=== PATIENT | female | born 1955 | race Caucasian/White ===

== ENCOUNTER 2016-08-22 23:33 | Inpatient (IN) ==
[2016-08-22] MEDS ORDERED: XYLOCAINE-MPF 1% 5 ML ONE (23:45)
[2016-08-23 03:54] LABS: MANUAL DIFF NEEDED? NO
[2016-08-23 04:01] LABS: BASO% 0.3 % (0.0-0.8); EOS# 0.21 X1000 (0.0-0.7); EOS% 3.3 % (0.0-10.0); HEMATOCRIT 34.7 % (37.0-47.0); HEMOGLOBIN 10.8 g/dL (12.0-16.0); IMM GRAN# 0.02 X1000 (0.0-0.04); IMM GRAN% 0.3 % (0.0-0.5); LYMPH# 1.55 X1000 (1.2-3.4); LYMPH% 24.4 % (20.5-51.1); MCH 29.5 PG (27-31); MCHC 31.1 g/dL (33-37); MCV 94.8 FL (81-99); MONO# 0.33 X1000 (0.11-0.59); MONO% 5.2 % (1.7-9.3); MPV 10.2 FL (7.4-10.4); NEUT% 66.5 % (42.2-75.2); PLT 234 X1000 (130-400); RBC 3.66 XMIL (4.2-5.4)
[2016-08-23 04:23] LABS: AGAP 12; ALBUMIN 3.9 g/dL (3.5-5.0); ALKALINE PHOSPHATASE 56 U/L (32-104); BUN 27 mg/dL (8-22); CALCIUM 9.1 mg/dL (8.8-10.2); CHLORIDE 107 mmol/L (98-107); COSMO 289; GOT 42 U/L (10-30); GPT 33 U/L (10-36); POTASSIUM 3.9 mmol/L (3.5-5.1); SODIUM 142 mmol/L (136-145); TCO2 23 mmol/L (25-35); TOTAL BILIRUBIN < 0.15 mg/dL (0.20-1.00); TOTAL PROTEIN 6.1 g/dL (6.3-8.3)
[2016-08-23 04:39] LABS: CK INDEX 0.9 (0.0-2.5); CK-MB 11.46 ng/mL (0.0-5.0)
[2016-08-23] MEDS ORDERED: ULTRACET 37.5MG/325MG PO PRN (05:26)
--- NOTE | 2016-08-23 08:08 | Diag Imaging Result Document ---
PROCEDURE NAME: LUMBAR SPINE W/O CONTRAST - 08/23/2016 CT LUMBAR SPINE WITHOUT CONTRAST: FINDINGS: There are 6 lumbar type vertebra. The uppermost vertebra will be referred to as L1 vertebra. There is a mild compression fracture inferiorly involving the L1 vertebra. This appears to be acute. Minimal anterior wedging of the L2 vertebra which does not appear to be acute. No other compressed vertebra. No subluxation. Prominent bone spurring in the lower lumbar spine. There is a vacuum disk at L4-5. No disk herniation. IMPRESSION: Acute mild compression fracture inferiorly to the L1 vertebra.
[2016-08-23] MEDS ORDERED: NORCO-7.5 PO PRN (10:21)
[2016-08-23] MEDS: LASIX PO SCH (12:05)
[2016-08-23] MEDS: WELLBUTRIN XL PO SCH (12:05)
[2016-08-23] MEDS: PRINIVIL PO SCH (12:05)
[2016-08-23] MEDS: PRILOSEC PO SCH (12:06)
[2016-08-23] MEDS: KLOR-CON PO SCH (12:06)
--- NOTE | 2016-08-23 13:12 | Diag Imaging Result Document ---
PROCEDURE NAME: HEAD W/O CONTRAST - 08/23/2016 CT BRAIN WITHOUT. FINDINGS: No parenchymal hemorrhage. No epidural or subdural hematoma. No subarachnoid hemorrhage. No mass identified on this noncontrasted exam. No hydrocephalus. No skull fracture. No sinus opacification. There are posterior scalp skin myranda. IMPRESSION: Posterior scalp skin myranda, but no intracranial injury. A preliminary report was given at 12:57 p.m.
--- NOTE | 2016-08-23 17:04 | HISTORY AND PHYSICAL ---
PRIMARY CARE PHYSICIAN: JOSH Houston at [facility]. CHIEF COMPLAINT: Passing out and hitting her head on her bedside table. HISTORY OF PRESENTING ILLNESS: This is a 61-year-old female who presents to [facility] ER after she states that she had gotten up to walk to her kitchen, remembers she had been sitting on the side of the bed. When she stood up she states that she passed out and lost consciousness briefly, hitting the back of her head on her night stand. When she came to, she states that she saw blood, put her hand on the back of her head and she did have about a 1 inch laceration to her posterior occiput. She came to the emergency room. She had 5 myranda placed to the laceration to her posterior occiput. Laboratory data showed a creatine kinase of 1236 with a CK-MB of 11.46 with a negative troponin 0.010. Lumbar spine CT was obtained that showed an acute mild compression fracture inferiorly to the L1 vertebrae. CT of the head showed no hemorrhage. She was admitted for further evaluation and treatment. PAST MEDICAL HISTORY: Of hypertension, osteoporosis, GERD, degenerative joint disease, scoliosis, Any's disease. PAST SURGICAL HISTORY: Cholecystectomy, hysterectomy, tonsillectomy and a gastric bypass. FAMILY HISTORY: Noncontributory. SOCIAL HISTORY: She currently lives alone. Denies any tobacco, alcohol, or illicit drug use. LABORATORY DATA: Showed a white blood cell count of 6.36, a hemoglobin of 10.8, hematocrit 34.7, platelets 234,000. Sodium of 142, potassium 3.9, chloride 107, CO2 23, BUN of 27, creatinine 0.5. Glucose 119. Creatine kinase of 1236 with a CK-MB of 11.46. Troponin less than 0.010. Lumbar spine CT showed an acute mild compression fracture inferiorly of the L1 vertebrae. CT of the head showed posterior scalp skin myranda but no intracranial injury. REVIEW OF SYSTEMS: She denied any fever, chills, blurred vision, dizziness, chest pain, coughing, shortness of breath. Denies any constipation, diarrhea, abdominal pain. It is positive for low back pain and a mild headache status post her fall. PHYSICAL EXAMINATION: On arrival showed a temperature of 97.8 degrees, a pulse of 77, respirations 17, blood pressure 150/76, saturating 100% on room air. GENERAL: This is a 61-year-old female who is lying in the bed, answers questions appropriately. HEENT: Normocephalic and atraumatic. Pupils are equal, round, reactive to light. Extraocular movements are intact. Oropharynx and nares are clear. Patient is noted to her posterior occiput to have 5 myranda to a 1 inch laceration that are dry and intact. NECK: Supple. LUNGS: Clear to auscultation bilaterally with equal lung expansion and chest wall movement. HEART: With regular rate and rhythm. No murmurs, rubs, or gallops. ABDOMEN: Soft, nontender, nondistended. Bowel sounds are present x4 quadrants. EXTREMITIES: No clubbing, cyanosis, or edema. NEUROLOGICAL: The cranial nerves 2-12 are grossly intact. ASSESSMENT: 1. Syncope. 2. Rhabdomyolysis. 3. An acute L1 compression fracture. 4. Hypertension. 5. Gastroesophageal reflux disease. PLAN: She was admitted to the medical unit. Placed on telemetry. Healthy heart diet. Will obtain an echocardiogram and a carotid ultrasound. Continue her home medications. Place on normal saline at 150 mL an hour, Demerol 25 mg IV q.4 hours p.r.n. pain. Recheck a CBC, BMP, and cardiac profile in the a.m. ALLERGIES: Hydrocodone, povidone iodine soap and sulfa. HOME MEDICATIONS: We will hold the following: Antivert 25 mg p.o. q.8 hours p.r.n., Naprosyn 500 mg p.o. p.r.n., Imitrex 50 mg p.o. p.r.n., temazepam 30 mg p.o. daily. We will continue her bupropion XL 300 mg p.o. daily. Lasix 40 mg p.o. daily, lisinopril 10 mg p.o. daily. Potassium 10 mEq p.o. daily. AcipHex 20 mg p.o. daily. Dictated by NINOSKA Sotelo for Omar Mulligan MD cc: NINOSKA Sotelo MD Ellie Adams
[2016-08-23] MEDS: DEMEROL IV PRN ×2 (17:32→23:57)
[2016-08-24] MEDS: NS 1,000 ML IV SCH ×5 (00:02→21:25)
[2016-08-24] MEDS: DEMEROL IV PRN ×2 (04:58→09:15)
[2016-08-24 05:56] LABS: MANUAL DIFF NEEDED? NO
[2016-08-24] MEDS: PRILOSEC PO SCH (06:06)
[2016-08-24 06:43] LABS: AGAP 11; BUN 20 mg/dL (8-22); CALCIUM 8.6 mg/dL (8.8-10.2); CHLORIDE 107 mmol/L (98-107); COSMO 283; POTASSIUM 3.5 mmol/L (3.5-5.1); SODIUM 141 mmol/L (136-145); TCO2 24 mmol/L (25-35)
[2016-08-24 06:45] LABS: CK PROFILE 1120 U/L (24-173)
[2016-08-24 06:57] LABS: BASO% 0.5 % (0.0-0.8); EOS# 0.21 X1000 (0.0-0.7); EOS% 4.8 % (0.0-10.0); HEMATOCRIT 31.9 % (37.0-47.0); HEMOGLOBIN 9.8 g/dL (12.0-16.0); IMM GRAN# 0.01 X1000 (0.0-0.04); IMM GRAN% 0.2 % (0.0-0.5); LYMPH# 1.11 X1000 (1.2-3.4); LYMPH% 25.4 % (20.5-51.1); MCH 29.4 PG (27-31); MCHC 30.7 g/dL (33-37); MCV 95.8 FL (81-99); MONO# 0.28 X1000 (0.11-0.59); MONO% 6.4 % (1.7-9.3); MPV 10.3 FL (7.4-10.4); NEUT% 62.7 % (42.2-75.2); PLT 215 X1000 (130-400); RBC 3.33 XMIL (4.2-5.4)
[2016-08-24 07:05] LABS: CK INDEX 0.6 (0.0-2.5); CK-MB 6.98 ng/mL (0.0-5.0)
[2016-08-24] MEDS: LASIX PO SCH (09:14)
[2016-08-24] MEDS: KLOR-CON PO SCH (09:14)
[2016-08-24] MEDS: FLEXERIL PO PRN ×2 (09:14→22:40)
[2016-08-24] MEDS: PRINIVIL PO SCH (09:14)
[2016-08-24] MEDS: WELLBUTRIN XL PO SCH (09:14)
[2016-08-24] MEDS ORDERED: IMITREX SUBQ ONE (13:49)
[2016-08-24] MEDS ORDERED: TORADOL IV ONE (13:49)
[2016-08-24] MEDS ORDERED: TORADOL IV PRN (13:50)
[2016-08-24] MEDS ORDERED: FIORICET PO PRN (14:03)
--- NOTE | 2016-08-24 14:32 | PROGRESS NOTE ---
DATE: 08/24/2016 SUBJECTIVE: The patient has no focal complaints. OBJECTIVE: Vital Signs: Blood pressure 119/53, heart rate 73, respiratory rate 18, temperature 97.8 degrees. Cardiovascular: Regular rate and rhythm. Pulmonary: Bilateral breath sounds. Clear to auscultation. Gastrointestinal: Soft, nontender, nondistended. Bowel sounds are positive. LABORATORY DATA: White count of 4. Hemoglobin and hematocrit 9 and 32. Platelets 215,000. CMP normal, except creatine kinase up a little bit at 1120. PROBLEM LIST: 1. Fall/syncope. Echo and carotid are pending. Telemetry, I believe, has been unremarkable and all her tests are still just waiting. 2. L1 compression fracture. Apparently she has been up and about. I am still waiting on PT's assessment. I do not think they have seen her yet. Just to get a better sense if she stays, to go home, because she is alone at home and has no support. Apparently she has had a compression fracture in the past. 3. Migraine. She is complaining of migraines currently. We will treat that. She usually responds to Imitrex. We will try Toradol, Fioricet. Increase her pain medication, morphine. 4. She also has some early mild rhabdomyolysis without renal failure. We will continue IV fluids and follow clinically. DISPOSITION: Pending her workup. cc: Robert Montejo MD
--- NOTE | 2016-08-24 19:13 | ECHO REPORT ---
ORDER DATE: 08/23/2016 INTERPRETING PHYSICIAN: Dr. Grajeda CLINICAL INDICATIONS: Wivsb-gmu-simv-old female, syncope. M-MODE MEASUREMENTS: Right ventricle: 2.3 cm. Left ventricle end diastole: 4.6 cm. Left ventricle end systole: 2.9 cm. Posterior wall: 1.0 cm. Interventricular septum: 1.0 cm. Left atrium: 3.9 cm. Aortic root: 3.5 cm. SUMMARY OF 2-DIMENSIONAL IMAGING: The left ventricular function is normal. Ejection fraction estimated at 60% to 65%. No wall motion abnormality is noted. The left ventricular chamber is not dilated. Right ventricle appears to be normal. The atria appear to be normal. Aortic valve has three cusps. There is no stenosis. Color flow mapping indicates very mild degree of regurgitation. Mitral valve looks normal. Color flow mapping indicates mild degree of regurgitation. Pulse wave Doppler of mitral inflow is normal. Pulse wave Doppler of pulmonary venous flow is normal. Tissue Doppler of septal and lateral mitral anulus averages 12 cm. There is no diastolic dysfunction. Tricuspid valve looks normal with mild degree of regurgitation. Pulmonic valve looks normal. Color flow mapping unremarkable. Inferior vena cava is not dilated. Pulmonary pressure estimated at 35 mmHg. There is no pericardial effusion, masses, nor thrombus. SUMMARY: This study shows: 1. Normal left ventricular systolic function. 2. Mild degree of mitral and tricuspid regurgitation. 3. Very minimal degree of aortic regurgitation. 4. No diastolic dysfunction. 5. Pulmonary systolic pressure estimated at 35 mmHg. Clinical correlation recommended. cc: MD Shalonda Naylor CRNP
[2016-08-25 05:58] LABS: HEMATOCRIT 30.9 % (37.0-47.0); HEMOGLOBIN 9.6 g/dL (12.0-16.0); MCH 29.6 PG (27-31); MCHC 31.1 g/dL (33-37); MCV 95.4 FL (81-99); MPV 10.1 FL (7.4-10.4); RBC 3.24 XMIL (4.2-5.4)
[2016-08-25 06:18] LABS: AGAP 11; BUN 18 mg/dL (8-22); CALCIUM 8.7 mg/dL (8.8-10.2); CHLORIDE 108 mmol/L (98-107); COSMO 287; POTASSIUM 3.7 mmol/L (3.5-5.1); SODIUM 143 mmol/L (136-145); TCO2 23 mmol/L (25-35)
[2016-08-25] MEDS: PRILOSEC PO SCH (06:23)
--- NOTE | 2016-08-25 07:04 | Extremity Venous Study ---
PROCEDURE NAME: Carotid Ultrasound - 08/23/2016 BILATERAL CAROTID ARTERY DOPPLER ULTRASOUND: COMPARISON: None. FINDINGS: On the right side, there is some mild plaque buildup throughout the carotid bulb and proximal internal carotid artery. No elevated velocity to suggest hemodynamically significant stenosis. Maximum velocity is 103 cm/sec in the distal internal carotid artery. This is consistent with mild stenosis of 0%-39%. On the left side, there is plaque buildup throughout the carotid bulb and internal carotid artery. There is mildly elevated velocity in the carotid bulb at 116 cm/sec. This corresponds with moderate, 40%-59% stenosis. The vertebral arteries are patent. IMPRESSION: Atherosclerotic changes of the carotid arteries bilaterally. Moderate stenosis at the left carotid bulb.
[2016-08-25] MEDS: PRINIVIL PO SCH (09:48)
[2016-08-25] MEDS: KLOR-CON PO SCH (09:48)
[2016-08-25] MEDS: MORPHINE IV PRN ×3 (09:48→22:28)
[2016-08-25] MEDS: WELLBUTRIN XL PO SCH (09:48)
[2016-08-25] MEDS: LASIX PO SCH (09:48)
[2016-08-25] MEDS: NS 1,000 ML IV SCH ×2 (09:56→13:12)
[2016-08-25] MEDS ORDERED: MAALOX PLUS LIQUID PO PRN (11:26)
[2016-08-25] MEDS: FLEXERIL PO PRN (16:20)
--- NOTE | 2016-08-25 16:44 | PROGRESS NOTE ---
DATE: 08/25/2016 SUBJECTIVE: The patient feels better. She looks a lot better. She is much more attentive, alert. Her pain seems to be fairly well-controlled. OBJECTIVE: Vital Signs: Blood pressure 126/64, heart rate 79, respiratory rate 18, temperature 98.9 degrees, 99% on room air. Cardiovascular: Regular rate and rhythm. Pulmonary: Bilateral breath sounds. Clear to auscultation. Gastrointestinal: Abdomen soft, nontender, nondistended. Bowel sounds are positive. LABORATORY DATA: White count 3.5, hemoglobin and hematocrit 9.6 and 30, platelets 210,000. Basic was normal. CPK 1288. PROBLEM LIST: 1. Acute rhabdomyolysis: We will continue fluids and follow clinically. Total CPK we will monitor tomorrow. I suspect with her Any syndrome she probably has some degree of chronic CK leak but we will continue to follow. 2. Migraines: Appear to be controlled. 3. Compression fracture: Pain appears to be somewhat controlled. 4. Disposition: It looks like she will be able tolerate going home. I anticipate possible discharge tomorrow if stable. cc: Robert Montejo MD
[2016-08-26] MEDS: NS 1,000 ML IV SCH ×2 (01:17→13:22)
[2016-08-26 06:18] LABS: HEMATOCRIT 31.6 % (37.0-47.0); HEMOGLOBIN 9.6 g/dL (12.0-16.0); MCHC 30.4 g/dL (33-37); MCV 95.5 FL (81-99); MPV 10.2 FL (7.4-10.4); RBC 3.31 XMIL (4.2-5.4)
[2016-08-26] MEDS: PRILOSEC PO SCH (06:32)
[2016-08-26] MEDS: MORPHINE IV PRN (06:34)
[2016-08-26 06:55] LABS: AGAP 12; ALBUMIN 3.3 g/dL (3.5-5.0); ALKALINE PHOSPHATASE 100 U/L (32-104); BUN 14 mg/dL (8-22); CALCIUM 8.8 mg/dL (8.8-10.2); CHLORIDE 107 mmol/L (98-107); COSMO 285; GOT 68 U/L (10-30); GPT 52 U/L (10-36); HDL 60 mg/dL (45-65); LDL 91 mg/dL; POTASSIUM 3.6 mmol/L (3.5-5.1); SODIUM 143 mmol/L (136-145); TCO2 24 mmol/L (25-35); TOTAL PROTEIN 5.1 g/dL (6.3-8.3); TRIGLYCERIDES 72 mg/dL (35-135); VLDL 14 mg/dL
[2016-08-26 07:52] VITALS: BP 127/67
[2016-08-26] MEDS: WELLBUTRIN XL PO SCH (08:54)
[2016-08-26] MEDS: KLOR-CON PO SCH (08:55)
[2016-08-26] MEDS: PRINIVIL PO SCH (08:55)
[2016-08-26] MEDS: LASIX PO SCH (08:55)
[2016-08-26] MEDS ORDERED: PERCOCET-5 PO PRN (10:24)
--- NOTE | 2016-08-26 12:56 | Diag Imaging Result Document ---
PROCEDURE NAME: RIBS UNILAT W/PA CHEST LEFT - 08/26/2016 RIBS, UNILATERAL PA CHEST LEFT: INDICATION: Fall with left rib pain. FINDINGS: There are fractures involving the anterolateral 9th and 10th ribs. There is a left pleural effusion. No pneumothorax is identified. There are surgical myranda at the gastric region. The heart size appears normal. Right lung is clear. IMPRESSION: New left effusion associated with fractures of the left 9th and 10th ribs.
--- NOTE | 2016-08-26 18:20 | DISCHARGE SUMMARY ---
ADMISSION DATE: 08/23/2016 DISCHARGE DATE: 08/26/2016 PRIMARY CARE PHYSICIAN: JOSH Houston at [facility]. ADMISSION DIAGNOSES: 1. Syncope. 2. Rhabdomyolysis. 3. Acute L1 compression fracture. 4. Hypertension. 5. Gastroesophageal reflux disease. DISCHARGE DIAGNOSES: 1. Syncope resolved. 2. Rhabdomyolysis improved, but this is in the setting of Any muscle syndrome. 3. Acute L1 compression fracture. 4. Left 9th and 10th rib fractures. 5. Hypertension. 6. Gastroesophageal reflux disease. SUMMARY OF FINDINGS: This is a 61-year-old female who presented to the emergency room after she had gotten up from her bed to walk into her kitchen and remembers she had been sitting on the side of the bed. When she stood up, she passed out and lost consciousness briefly hitting the back of her head on her night stand. When she came to she saw blood, put her hand on the back of her head and noticed that she had about an inch laceration to her posterior fossa and she came to the emergency room and required 5 myranda placed to that laceration to her posterior occiput. Laboratory data showed a creatine kinase of 1236 with a CK-MB of 11.46, negative troponin. Lumbar spine CT showed an acute mild compression fracture inferiorly to the L1 vertebra. CT of her head showed no hemorrhage. She was given IV hydration. We continued her home medications. We gave her Demerol 25 IV q.4 hours p.r.n. initially. Then, she was changed over to morphine 2 mg IV q.4 hours p.r.n. Her laboratory data shows improvement in her creatine kinase. She is down today to the 963. She continued even with physical therapy to have some pain in her left rib area on the side. We did a rib with chest x-ray that showed fractures of the left 9th and 10th ribs. But it is felt that she can safely be discharged home today with home health with a physical therapy component. DISCHARGE MEDICATIONS: Bupropion 300 mg p.o. daily. Calcium D chewable daily, Antivert 25 mg p.o. q.8 hours p.r.n., naproxen 500 mg p.o. p.r.n., oxycodone 5 one p.o. q.4 hours p.r.n., #25 with no refills. Imitrex 50 mg p.o. p.r.n., temazepam 30 mg p.o. daily. Zanaflex 4 mg p.o. t.i.d. p.r.n. #90 with no refills. We will also start her on some Lovaza 1 g p.o. b.i.d. #60 with 2 refills. FOLLOWUP: She will follow up with her primary care physician in 1-2 weeks. She will also need to follow up with her surgeon Dr. Boo in [place] as her carotid Dopplers showed moderate stenosis at the left carotid bulb that corresponded with 40-59% stenosis. Patient instructed on this and verbalized understanding. DISCHARGE TIME: Thirty-five minute discharge. Dictated by NINOSKA Sotelo for Robert Montejo MD cc: NINOSKA Sotelo MD Ellie Adams pt examined, agree with above, pt will be set up with home heatlt, and [facility]
--- NOTE | 2016-08-30 02:23 | PROVIDER DOCUMENTATION ---
This chart was entered by Jessica Gore, acting as scribe for Cricket Carrion MD. HPI-Head Injury - General Chief Complaint: Head Injury Stated Complaint: FALL Time Seen by Provider: 08/22/16 23:40 Source: patient Allergies/Adverse Reactions: Patient Allergies Allergy/AdvReac Type Severity Reaction Status Date / Time hydrocodone Allergy NAUSEA Verified 08/22/16 23:39 povidone-iodine Allergy RASH Verified 08/22/16 23:39 [From Betadine] soap [From Betadine] Allergy RASH Verified 08/22/16 23:39 Sulfa (Sulfonamide Allergy NAUSEA Verified 08/22/16 23:39 Antibiotics) Home Medications: Home Medication List Medication Instructions Recorded Confirmed Last Taken Type Bupropion HCl [Bupropion Xl] 300 mg PO DAILY 08/06/16 08/23/16 08/22/16 History Calcium Carb/Vitamin D3/Vit K1 1 each PO 08/06/16 08/22/16 History [Calcium + D Soft Chewable Tab] Furosemide [Lasix] 40 mg PO DAILY 08/06/16 08/23/16 08/22/16 History Lisinopril 10 mg PO DAILY 08/06/16 08/23/16 08/22/16 History Meclizine HCl [Antivert] 25 mg PO Q8H PRN PRN #12 tablet 08/06/16 08/23/1608/22 Rx Naproxen [Naprosyn] 500 mg PO PRN PRN 08/06/16 08/23/16 08/22/16 History Potassium Chloride [Klor-Con 10] 10 meq PO DAILY 08/06/16 08/23/16 08/22/16 History Rabeprazole [Aciphex] 20 mg PO DAILY 08/06/16 08/23/16 08/22/16 History Sumatriptan [Imitrex] 50 mg PO PRN PRN 08/06/16 08/23/16 08/22/16 History Temazepam 30 mg PO DAILY 08/06/16 08/23/16 08/22/16 History Sarah-3 Acid Ethyl Esters [Lovaza] 1 gm PO BID #60 capsule 08/26/16 Unknown Rx Oxycodone/APAP 5 mg/325 mg 1 each PO Q4H PRN PRN #25 tablet 08/26/16 Unknown Rx [Percocet-5] Tizanidine HCl [Zanaflex] 4 mg PO TID PRN PRN #90 tablet 08/26/16 Unknown Rx - History of Present Illness-Head Injury Nature of Presenting Problem: pt is a 61 year old female present to the ER with cc of a fall resulting in a head injury. pt denies loss of consciousness or chest pain. pt states she was getting out of bed to go to the kitchen and started to sit back down on the bed n missed the bed and her head hit the corner of the bed. she put her hand behind her head and blood was all over her hands and the floor. pt lives alone, has a hx of vertigo, chronic dizziness, HTN, osteoporosis. pt alert and oriented to person and place and time. denies any use of blood thinners denies any head pain. Head Injury Location: reports: occipital Other injuries associated with incident:: reports: head Quality of Pain: reports: tearing Severity: reports: moderate Onset/Duration: reports: just prior to arrival Timing: reports: still present Method of Injury: reports: fell Any recent trauma/injury?: reports: none Loss of Consciousness: no loss of consciousness Modifying Factors: improves with: nothing Injury Associated Symptoms: reports: denies symptoms, trouble walking. denies: arm pain, chest pain, diaphoresis, dizziness, nausea, shortness of breath Similar Symptoms Previously?: No Recently seen or treated by another doctor?: No Review of Systems - Adult - REVIEW OF SYSTEMS - ADULT Constitutional: denies: chills, fever, fatique Eyes: reports: no symptoms reported Ears, Nose, Mouth & Throat: denies: ear discharge, ear pain, hearing loss Cardiovascular: denies: chest pain, edema Respiratory: denies: chronic cough, cough, dyspnea on exertion Gastrointestinal: reports: no symptoms reported Genitourinary: reports: no symptoms reported Musculoskeletal: denies: joint pain, joint swelling Integumentary: denies: hives, hair loss Neurological: reports: dizziness/vertigo, headache/migraines, loss of balance. denies: paresthesia, seizure Psychiatric: denies: anxiety Endocrine: reports: no symptoms reported Hematologic/Lymphatic: reports: no symptoms reported Allergic/Immunologic: reports: no symptoms reported All Other Systems: Reviewed and Negative Past History - Adult - PAST MEDICAL HISTORY-ADULT Review of Records: reports: Nursing Assessment Review Major Childhood Illnesses: reports: denies history Cardiovascular: reports: HTN Respiratory: reports: denies history Gastrointestinal: reports: GERD Obstetrical/Gynecological: reports: denies history Genitourinary: reports: denies history Musculoskeletal: reports: arthritis, intervertebral disc disease (DJD), osteoporosis, other (scoliosis,) Neurological: reports: headaches/migraines Psychiatric: reports: depression, other (insomnia) Endocrine/Immune: reports: denies history 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) - PRIOR SURGERIES/PROCEDURES Surgical/Procedure History: reports: cholecystectomy, hysterectomy, tonsillectomy, gastric bypass, other (plastic surgeries) - IMMUNIZATION STATUS Childhood Immunizations: See Nurse Assessment Flu Vaccine: See Nurse Assessment - FAMILY HISTORY Family History: reviewed, not pertinent Physical Exam- Neurological - Physical Exam-Neuro Initial Vital Signs Reviewed: Yes General Appearance: appears well, alert, no apparent distress HENMT: moist mucous membranes, normal ENT inspection, TMs normal, pharynx normal Head Injury: lacerations (posterior occiput 1 inch lac) Neck: non-tender, full range of motion Respiratory: chest non-tender, lungs clear, normal breath sounds, no pleuratic chest pain, no respiratory distress, no accessory muscle use Cardiovascular: normal peripheral pulses, regular rate, rhythm, no edema, no gallop, no JVD, no murmur Abdominal Exam: normal bowel sounds, non tender, soft, no organomegaly Lymphatic: no adenopathy Extremity: normal range of motion, no pedal edema, no calf tenderness, 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, 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 Exam: normal hearing, normal speech Neurologic: grossly normal, no motor/sensory deficits Integumentary: normal color, normal turgor, warm/dry Psych/Mental Status: normal mood/affect, normal thought content, normal thought process, oriented x 3 - Glascow Coma Scale Best Eye Response: (4) open spontaneously Best Verbal Response: (5) oriented Best Motor Response: (6) obeys commands Total Glascow Score: 15 Progress - PLAN OF CARE/RESULTS Progress/Plan/Lab Results: Orders Category Date Time Status Admit - [facility] Routine AdmDCTranf 08/23/16 05:20 Ordered Activity - Strict Bedrest ORDERED Care 08/23/16 05:20 Completed Vital Signs Order Q 8-HR .ASSESS Care 08/23/16 05:20 Active Heart Healthy Diet Diet 08/23/16 05:22 Completed LUMBAR SPINE W/O CONTRAST [CT] Stat Exams 08/23/16 00:42 Completed CBC WITH DIFF [HEME] Stat Lab 08/23/16 03:40 Completed CK PROFILE [SP CHEM] Stat Lab 08/23/16 03:40 Completed COMPREHENSIVE METABOLIC PANEL [CHEM] Stat Lab 08/23/16 03:40 Completed TROPONIN T Stat Lab 08/23/16 03:40 Completed Cyclobenzaprine [Flexeril] Med 08/23/16 05:25 Discontinued 10 mg PO TID PRN PRN Lidocaine 1% Pf [Xylocaine-Mpf 1%] 5 ml Med 08/22/16 23:45 Discontinued .ROUTE As Directed Tramadol/APAP [Ultracet 37.5MG/325Mg] Med 08/23/16 05:26 Discontinued 1 each PO Q6H PRN PRN Result Diagrams: 08/26/16 06:00 08/26/16 06:00 Procedures - LACERATION/WOUND REPAIR/FB Posterior Head Wound Location: Other: BAck of head Wound's Depth, Shape: superficial Wound Explored/Foreign Body: contaminated moderately Irrigated with Saline?: Yes Anesthetic: 0.5%, Lidocaine/Xylocaine Wound Repaired with: Myranda-Small Number of Sutures: 8 Procedure Comment: 5 myranda applied in back of head Departure - Departure Time of Disposition Decision: 14:11 DIAGNOSIS: Lumbar compression fracture Qualifiers: Encounter type: initial encounter Fracture type: closed Qualified Code(s): S32.000A - Wedge compression fracture of unspecified lumbar vertebra, initial encounter for closed fracture Disposition: ADMITTED INPATIENT 09 Certified Medical Emergency: Emergent Condition: Stable - Critical Care Note This patient required my direct & personal management of CC.: No This chart was documented by the indicated scribe, (Jessica Gore) and accurately reflects the services I performed and decisions made by me, Cricket Carrion MD, as attested by the provider's signature.
== END 2016-08-26 14:40 | disposition home health service (06) ==
LOC: P.ED 23:33 → P.MEDSURG 08-23 05:49 → SUATTDRO 08-23 05:49
PROVIDERS: ATTEND Internal Medicine